=== PATIENT | male | born 1990 | race Caucasian/White ===

== ENCOUNTER 2018-07-19 21:09 | Emergency (ER) | payer SELFPAY ==
[2018-07-19 21:10] VITALS: BP 160/106; PULSE 74; RESP 17; TEMP 36.6; O2SAT 99; BMI 23.1
--- NOTE | 2018-07-19 22:24 | ED.VISSUMM ---
- ER Visit Summary Date of Service: 07/19/18 Chief Complaint: Dental pain History of Present Illness: The patient is a 27 M who is status post root canal. He has been taking Motrin and Tylenol at home with no improvement. Patient is having difficulty chewing and eating because of the pain. Physical Examination: Patient has postoperative changes without abscess, trismus, tongue elevation, or other apparent complications. Test Results: None indicated Emergency Department Course and Treatment: Patient will be treated with Percocet. His prescription report was negative. Continue taking anti-inflammatories. Continue fluids and soft foods at home. Follow-up with dental. Treatment Plan: As above Disposition: Discharge Impression: 1. Dental pain This note was generated with [employer] dictation software. It may contain incorrect words, spelling, and punctuation that were not noted in review of the chart prior to signing ED Disposition - Plan for ED Patient: Disposition: Home or Assisted Living Instructions: ED Tooth Pain Prescriptions: Oxycodone HCl/Acetaminophen [Percocet 5/325] 1 tab PO Q6H PRN PRN 3 Days #12 tab PRN Reason: Pain Ondansetron [Zofran Odt] 4 mg PO Q8H PRN PRN #10 tab PRN Reason: Nausea Additional Instructions: follow up with your dentist
[2018-07-19] MEDS: Ondansetron ODT 4 MG Tablet PO (22:27)
[2018-07-19] MEDS: HYDROcodone Bitartrate/Apap 5/325 Tablet PO (22:27)
== END 2018-07-19 22:36 | disposition home or self-care (01) ==
PROVIDERS: Emergency Provider Emergency Medicine
DX: K08.89 Other specified disorders of teeth and supporting structures (principal); Z98.818 Other dental procedure status
CPT/HCPCS: 99283